=== PATIENT | female | born 2000 | race Two or more races ===

== ENCOUNTER 2023-11-12 18:23 | Emergency (ER) | payer OTHER ==
[~2023-11-12] VITALS: Ht 160 cm; Wt 81.6 kg
[2023-11-12 19:48] LABS: HEMOGLOBIN 11.9 g/dL (12.0-15.00); MEAN CELL VOLUME 83.2 fL (80.00-100.00); MEAN CORPUSCULAR HEMOGLOBIN 27.4 pg (27.00-32.0); PLATELET COUNT 243 K/uL (150-450); RED BLOOD COUNT 4.33 M/uL (4.00-6.00); RED CELL DISTRIBUTION WIDTH 13.5 % (11.5-14.5)
[2023-11-12 19:52] LABS: PH,URINE 6.5 (5.0-8.0); URINE APPEARANCE Clear; URINE BILIRRUBIN Negative (NEGATIVE); URINE BLOOD Negative; URINE COLOR Yellow; URINE GLUCOSE Negative (NEGATIVE); URINE KETONE Trace (NEGATIVE); URINE LEUKOCYTE Negative; URINE NITRATE Negative; URINE PROTEIN Negative (NEGATIVE); URINE UROBILINOGEN 0.2 E.U./dl
[2023-11-12 19:55] LABS: URINE BACTERIA 6742.1 uL (0.0-1933); URINE EPITHELIAL CELLS 95.6 uL (0.0-38.8); URINE RBC 2.7 uL (0.0-20.8); URINE WBC 38.8 uL (0.0-23.2)
[2023-11-12 20:19] LABS: ALBUMIN 3.6 gm/dL (3.4-5.0); BILIRUBIN TOTAL 0.11 mg/dL (0.3-1.2); CALCIUM 8.8 mg/dL (8.5-10.1); GFR 68.12; GLOBULINA 4.3 G/DL (2.4-3.5); POTASSIUM 3.69 mEq/L (3.5-5.1); TOTAL PROTEIN 7.9 gm/dL (6.4-8.2)
== END 2023-11-12 21:06 | disposition home or self-care (01) ==
LOC: ER 18:24
PROVIDERS: General Practice
DX: R53.1 Weakness (principal)

== ENCOUNTER 2024-08-27 12:27 | Emergency (ER) | payer OTHER ==
[~2024-08-27] VITALS: Ht 160 cm; Wt 71.7 kg
[2024-08-27] MEDS ORDERED: PRENATA CHEWAB1 EACH PO (13:21)
[2024-08-27 14:50] LABS: BASO % 0.3 % (0.1-1.2); EOS # 0.07 (0.04-0.54); EOS % 1.2 % (0.7-7.0); HEMATOCRIT 33.3 % (34.1-44.9); HEMOGLOBIN 11.2 g/dL (11.2-15.7); LYMPH # 1.79 (1.18-3.74); MEAN CORPUSCULAR HEMOGLOBIN 26.5 pg (25.6-32.2); MONO # 0.47 (0.24-0.82); MONO % 8.1 % (4.7-12.5); NEUT # 3.41 (1.56-6.13); NEUT % 59.2 % (34.0-71.1); PLATELET COUNT 224 K/uL (163-369); RED BLOOD COUNT 4.23 M/uL (3.93-5.22); RED CELL DISTRIBUTION WIDTH 12.6 % (11.6-14.4)
[2024-08-27 15:00] LABS: URINE APPEARANCE Cloudy; URINE BILIRRUBIN Negative (NEGATIVE); URINE BLOOD Negative; URINE COLOR Yellow; URINE GLUCOSE Negative (NEGATIVE); URINE KETONE Trace (NEGATIVE); URINE LEUKOCYTE Moderate; URINE NITRATE Negative; URINE PROTEIN Trace (NEGATIVE)
[2024-08-27 15:03] LABS: URINE RBC 2.2 uL (0.0-20.8); URINE WBC 241.2 uL (0.0-23.2)
[2024-08-27 16:18] LABS: TYPE CELLS TRANSITIONAL; URINE BACTERIA > 9821.5 uL (0.0-1933); URINE CAST 0.58 uL (0.0-1.40); URINE EPITHELIAL CELLS > 201.7 uL (0.0-38.8)
== END 2024-08-27 18:04 | disposition home or self-care (01) ==
LOC: ER 12:32
PROVIDERS: Emergency Medicine
DX: O26.891 Other specified pregnancy related conditions, first trimester (principal); R10.2 Pelvic and perineal pain; Z3A.10 10 weeks gestation of pregnancy

== ENCOUNTER 2024-09-26 20:41 | Emergency (ER) | payer OTHER ==
[~2024-09-26] VITALS: Ht 160 cm; Wt 72.6 kg
[~2024-09-26 20:41] MED LIST: PRENATA CHEWAB1 EACH PO
[2024-09-26] MEDS ORDERED: VAZALORE81 MG (21:19)
[2024-09-26 21:26] VITALS: BP 120/80; O2SAT 100
[2024-09-26 22:16] LABS: BASO % 0.1 % (0.1-1.2); EOS # 0.08 (0.04-0.54); EOS % 1.1 % (0.7-7.0); LYMPH # 2.03 (1.18-3.74); LYMPH % 27.4 % (19.3-53.1); MEAN PLATELET VOLUME 10.20 fl (9.4-12.4); MONO # 0.58 (0.24-0.82); MONO % 7.8 % (4.7-12.5); NEUT # 4.67 (1.56-6.13); NEUT % 63.2 % (34.0-71.1); RED CELL DISTRIBUTION WIDTH 13.3 % (11.6-14.4)
[2024-09-26 22:37] LABS: URINE APPEARANCE Cloudy; URINE BILIRRUBIN Negative (NEGATIVE); URINE COLOR Yellow; URINE GLUCOSE Negative (NEGATIVE); URINE KETONE Negative (NEGATIVE); URINE LEUKOCYTE Large; URINE NITRATE Negative; URINE PROTEIN Negative (NEGATIVE); URINE UROBILINOGEN 0.2 E.U./dl
[2024-09-26 22:40] LABS: URINE BACTERIA 1914.9 uL (0.0-1933); URINE RBC 5.8 uL (0.0-20.8); URINE WBC 386.7 uL (0.0-23.2)
[2024-09-26 22:56] LABS: TYPE CELLS SQUAMOUS; URINE CAST 0.14 uL (0.0-1.40); URINE EPITHELIAL CELLS > 201.7 uL (0.0-38.8); URINE YEAST FEW /hpf
[2024-09-26 22:57] LABS: URINE BLOOD Trace
[2024-09-26] MEDS ORDERED: NITROFURANTOIN100 MG PO (23:14)
[2024-09-26] MEDS ORDERED: LIDOCAINE HCL 1% 10ML VIAL ONE (23:23)
[2024-09-26] MEDS ORDERED: CEFTRIAXONE SODIUM 1,000 MG VIAL ONE (23:23)
[2024-09-26] MEDS ORDERED: CEFTRIAXONE SODIUM 1,000 MG VIAL IM ONE (23:30)
== END 2024-09-26 23:44 | disposition home or self-care (01) ==
LOC: ER 20:41
PROVIDERS: General Practice
DX: O23.42 Unspecified infection of urinary tract in pregnancy, second trimester (principal); N39.0 Urinary tract infection, site not specified; Z3A.15 15 weeks gestation of pregnancy

== ENCOUNTER → 2024-10-27 07:23 | Outpatient (CLI) | payer OTHER ==
[~2024-10-27 07:23] MED LIST changes: +NITROFURANTOIN100 MG PO; +VAZALORE81 MG
== END | disposition home or self-care (01) ==
LOC: PRENATAL 07:23
PROVIDERS: ATTEND Obstetrics & Gynecology Maternal & Fetal Medicine
DX: O44.00 Complete placenta previa NOS or without hemorrhage, unspecified trimester (principal); Z3A.20 20 weeks gestation of pregnancy

== ENCOUNTER → 2025-01-20 14:59 | Outpatient (CLI) | payer OTHER | END | disposition home or self-care (01) | LOC: PRENATAL 14:59 | PROVIDERS: ATTEND Obstetrics & Gynecology Maternal & Fetal Medicine | DX: O26.843 Uterine size-date discrepancy, third trimester (principal); O36.8130 Decreased fetal movements, third trimester, not applicable or unspecified; O99.013 Anemia complicating pregnancy, third trimester; Z3A.31 31 weeks gestation of pregnancy ==

== ENCOUNTER → 2025-02-09 07:39 | Outpatient (CLI) | payer OTHER | END | disposition home or self-care (01) | LOC: PRENATAL 07:39 | PROVIDERS: ATTEND Obstetrics & Gynecology Maternal & Fetal Medicine | DX: Z76.1 Encounter for health supervision and care of foundling (principal) ==